=== PATIENT | female | born 1945 ===

== ENCOUNTER → 2016-12-26 | Outpatient (CLI) | payer BC ==
[~2016-12-26] MED LIST: ALPR1TAB6 PO; CALC300T5 PO; FURO-68 PO; GABA600T2 PO; IOHEXOL 180 MG/ML 10 ML VIAL. ONE; LOSA100T6 PO; LYSI600T PO; MAGN400C PO; MELO15TA23 PO; POTA10TA PO; methylPREDNISolone ACETATE 40 MG/ML VIAL. ONE; methylPREDNISolone ACETATE 80 MG/ML VIAL. ONE
--- NOTE | 2016-12-27 01:30 | PAIN ---
DATE OF SERVICE: 12/26/2016 INITIAL CONSULTATION FOR PAIN CLINIC CHIEF COMPLAINT: Low back and left lower extremity pain. HISTORY OF PRESENT ILLNESS: This is a 71-year-old female who presents with history of pain in low back and left lower extremity for about a year. The patient reports it has been on and off over the years, gradually increasing, not a result of any specific injury or action that she has aware of been. Significant pain noted in the low back, left lower extremity, getting worse over the past few months. The patient has had a right laminectomy in 2010 at the L3-L4 space, was having right-sided symptoms at that time, but this is similar to that, but only on the left side now. The patient reports again worse over the past 8 years, but much worse over the past 1 year. She has increasing pain with activity, standing, walking, changing positions. It is better with lying down, but still wakes once or twice at night from sleep when she lies on her left side. The patient reports it does not affect her bowel or bladder control or ability to walk by using any assistive device to ambulate. She has had epidural injections in the past, physical therapies, chiropractic treatment and doing exercises. She daily goes for a walk about 1-2 miles and is still doing that even though it is becoming more painful with some significant fatigability in the left leg compared to the right. The patient reports it as radiating pain, it is throbbing, shooting and constant aching. His leg feels cold in the left leg as well, mostly in the posterior gluteus, posterior thigh, lateral thigh, anterior thigh and into the medial knee on the left side. The patient rates her disability rating from 0 to 10, 10 being the worst, it is a 6 with family and home responsibilities, 7 with recreation and sexual behavior, 1 with social activity and life support activities, 5 with occupation, 0 with self-care activities. The patient did have an MRI scan of the lumbar spine dated 12/10/2016 showing postoperative findings in L3-L4 including right L3 laminectomy and partial right facetectomy, bilateral foraminal narrowing at L2-L3 and L3-L4 secondary to disk bulging and facet arthropathy, narrowing greater on the left with no definite disk herniations. PAST MEDICAL HISTORY: Significant for hypertension, dizziness, arthritis, anemia, enlarged left ventricle, congestive heart failure, arthritis. PREVIOUS SURGERIES: Include vaginal hysterectomy in 1979, bilateral cataract extraction in 2009, cervical disk fusion in 1994, spinal laminectomy in 2010, lumbar and ruptured ovarian cyst in the past. CURRENT MEDICATIONS: Include calcium carbonate, magnesium, lysine, Lasix, meloxicam, alprazolam, gabapentin, potassium, losartan and magnesium. ALLERGIES: THE PATIENT IS ALLERGIC TO PHILL INHIBITORS AND VOLTAREN. FAMILY HISTORY: Significant for diabetes and hypertension. SOCIAL HISTORY: The patient reports she is currently retired, has about 3 alcoholic drinks a week on average, does not smoke. She is , lives with her spouse. No children living at home. Lives locally in [place], [place]. REVIEW OF SYSTEMS: The patient's review of systems is positive for those items mentioned in history of present illness. All systems reviewed and otherwise negative. It is complete, full and well documented on the patient's chart. PHYSICAL EXAMINATION: VITAL SIGNS: The patient's blood pressure is 117/49, pulse 62, respirations 18, temperature 97.9 degrees Fahrenheit. Height is 5 feet 3 inches, weight is 200 pounds. GENERAL: The patient is awake, alert, oriented, appropriate, has a very pleasant demeanor. HEENT: Head shows normocephalic, atraumatic. Extraocular movements are intact, symmetrical. Oral cavity has mucous membranes moist and pink. Dentition is intact. NECK: Shows anterior throat supple without palpable lymphadenopathy noted. Swallow reflex is symmetrical. CHEST: Shows normal with inspection. Breath sounds are clear to auscultation bilaterally. HEART: Shows S1 and S2 clear. No murmurs auscultated. ABDOMEN: Soft, obese, nontender, nondistended. No palpable organomegaly. No rebound or guarding demonstrated. BACK: Shows spine grossly in the midline. Slight exaggeration of thoracic kyphosis, mild flattening of lumbar lordotic curvature, previously well-healed surgical scar in the lumbar distribution. Lumbar paraspinous musculature shows symmetrical on inspection. With palpation shows moderate tenderness to palpation bilaterally only in the low lumbar distribution and slightly more on the left side than the right. No tenderness over the spinous processes over the sacrum or the sacroiliac regions. The patient shows good rotational motion of lumbar spine, both laterally greater than 10 degrees right and left as well as extension greater than 10 degrees, forward flexion at 45 degrees without significant increase in pain. LOWER EXTREMITIES: Show deep tendon reflexes at 1+ in the patellar and tendo calcaneus tendons are equal. Motor exam is approximately 4 on a scale of 5 with left dorsiflexion, extension, and 5/5 with right dorsiflexion, extension, quadriceps and hamstring flexion is 5/5 and equal bilaterally. Peripheral pulses are 1+, posterior tibial and dorsalis pedis pulses. No peripheral edema is noted. No clubbing, no cyanosis. Lower extremities are warm and dry to touch, equal in color and appearance. Straight leg raise noted to be positive on the left at about 35 degrees, which is decreased with knee flexion, but not completely relieved. Right side is negative with straight leg raise. Gaenslen's and Edmund's maneuvers are negative for reproduction of pain as well bilaterally. The patient is able to stand, stand on her toes without significant difficulty, loses her balance fairly quickly when she is trying to heel toe walk, was able to do this for a few steps. She walks with a slight shuffling gait, appears to favor the left lower extremity only mildly, again not using any assistive devices to ambulate. IMPRESSION: 1. This is a 71-year-old female with approximate 8-year history of low back pain increased over the last year in the left lower extremity with radicular pain as noted. 2. MRI scan of the lumbar spine as noted. 3. Hypertension. 4. Arthritis. PLAN: Options were discussed with the patient including conservative medical management, physical therapy and interventional techniques. She would like to pursue interventional techniques. We discussed a lumbar epidural steroid injection using description as well as anatomical models to describe the procedure. Risks were then discussed including, but not limited to bleeding, infection, possibility of epidural hematoma and subsequent neurologic compromise, dural puncture, headaches, spinal cord and/or nerve damage, side effects of steroid medication and poor results regarding pain control. The patient understands and wishes to proceed. The patient will return to clinic in approximately 2 weeks for followup, was counseled on return appointment, activity level, and side effects to be aware of. DIAGNOSIS: Lumbar radiculopathy with lumbar degenerative disk disease and post-lumbar laminectomy syndrome. PROCEDURE: Lumbar epidural steroid injection in translaminar approach at the L4-L5 level using C-arm fluoroscopic guidance under sterile prep and drape using local anesthetic. Medication injected is 120 mg Depo-Medrol plus 10 mL of preservative-free normal saline and 2 mL of Isovue for contrast. CONDITION AT DISCHARGE: Stable. The patient tolerated the procedure well, had no complications. JUANA MENDEZ MD DR: [email or web address] JOB#: [id number] / [id number] NAYAN Cheung
== END | disposition home or self-care (01) ==
LOC: PNCL 08:23
PROVIDERS: ATTEND Anesthesiology
DX: M51.16 Intervertebral disc disorders with radiculopathy, lumbar region (principal); M96.1 Postlaminectomy syndrome, not elsewhere classified; I10 Essential (primary) hypertension; D64.9 Anemia, unspecified; I50.9 Heart failure, unspecified; Z90.710 Acquired absence of both cervix and uterus; Z98.41 Cataract extraction status, right eye; Z98.42 Cataract extraction status, left eye; Z88.8 Allergy status to other drugs, medicaments and biological substances; Z83.3 Family history of diabetes mellitus; Z82.49 Family history of ischemic heart disease and other diseases of the circulatory system; Z72.89 Other problems related to lifestyle; Z88.2 Allergy status to sulfonamides
CPT/HCPCS: 62323; J1030; J1040

== ENCOUNTER → 2017-01-06 | Outpatient (CLI) | payer BC ==
[~2017-01-06] MED LIST changes: +ASPI81TA50 PO
== END | disposition home or self-care (01) ==
LOC: PNCL 08:43
PROVIDERS: ATTEND Anesthesiology
DX: M51.36 Other intervertebral disc degeneration, lumbar region (principal); M96.1 Postlaminectomy syndrome, not elsewhere classified; K21.9 Gastro-esophageal reflux disease without esophagitis; Z88.6 Allergy status to analgesic agent; Z91.040 Latex allergy status; Z91.048 Other nonmedicinal substance allergy status; Z88.2 Allergy status to sulfonamides
CPT/HCPCS: 62323; J1030; J1040

== ENCOUNTER → 2017-01-27 | Outpatient (CLI) | payer BC ==
--- NOTE | 2017-01-27 23:18 | PAIN ---
DATE OF SERVICE: PROGRESS NOTE FOR PAIN CLINIC DIAGNOSES: Lumbar radiculopathy with lumbar degenerative disk disease and post-lumbar laminectomy syndrome. HISTORY OF PRESENT ILLNESS: The patient is a 71-year-old female, who returns for followup, status post lumbar epidural steroid injection x 2, last seen on 01/06/2017. The patient did very well with this last injection to about 50% improvement. She has been on a recent vacation and fell while she was gone, but before that, was doing very well. Pain is increased now in her low back and left lower extremity, mostly in the posterior gluteus and posterolateral thigh - radiating, aching, sharp, constant, and becoming more constant. The patient reports that it is a 7 at its worst. It is a 2 on a scale of 10 currently. The patient reports no new motor or sensory deficits, no new bowel or bladder incontinence, and was doing quite well prior to her fall, which was about a week ago. PHYSICAL EXAMINATION: VITAL SIGNS: Today, the patient's blood pressure is 139/106, pulse 62, respirations 20, temperature is 98.2 degrees Fahrenheit, and weight is 198 pounds. GENERAL: The patient is awake, alert, oriented, and appropriate, has very pleasant demeanor. HEENT: Head shows normocephalic, atraumatic. Extraocular movements are intact and symmetrical. Oral cavity: Mucous membranes are moist and pink. NECK: Shows anterior throat supple without palpable lymphadenopathy noted. Swallow reflex is symmetrical. CHEST: Shows normal on inspection. Breath sounds are clear to auscultation bilaterally. HEART: Shows S1 and S2 clear. No murmurs auscultated. ABDOMEN: Obese, soft, nontender, and nondistended. BACK: Shows spine grossly midline. Slight exaggeration of thoracic kyphosis and mild flattening of lumbar lordotic curvature. Lumbar paraspinous musculature shows symmetrical on inspection without atrophy or hypertrophy. With palpation, shows some moderate tenderness, but only diffusely in the mid and lower lumbar distributions bilaterally. The patient shows full rotational motion of the lumbar spine however, both laterally as well as in extension and flexion without difficulty. No tenderness over the sacrum or at the sacroiliac regions. EXTREMITIES: Lower extremities show deep tendon reflexes at 1+ in the patellar and tendocalcaneus tendons. Motor exam is approximately 4 on a scale of 5 on the left and 5/5 on the right. Peripheral pulses are 1+. No peripheral edema is noted bilaterally. Options were discussed with the patient. The patient's old chart was reviewed as well as her current medication regimen updated. Current review of systems updated today as well, and we will proceed with a third in the series of lumbar epidural steroid injection using fluoroscopic guidance. Risks were again discussed, including, but not limited to bleeding, infection, possibility of epidural hematoma, subsequent neurologic compromise, dural puncture, headaches, spinal cord and/or nerve damage, side effects of steroid medication, and poor results regarding pain control. The patient understands and wishes to proceed. The patient will return to clinic in approximately 2 weeks for followup. She was counseled on return appointment, activity level, and side effects to be aware of. DIAGNOSES: Lumbar radiculopathy with lumbar degenerative disk disease and post-lumbar laminectomy syndrome. PROCEDURES: Lumbar epidural steroid injection in translaminar approach at the L4-5 level using C-arm fluoroscopic guidance under sterile prep and drape using local anesthetic. MEDICATIONS INJECTED: Depo-Medrol 120 mg plus 10 mL of preservative-free normal saline and 2 mL of Isovue for contrast. CONDITION AT DISCHARGE: Stable. The patient tolerated the procedure well, had no complications. JUANA MENDEZ MD DR: JEREMY/[email or web address] JOB#: [id number] / [id number]
== END | disposition home or self-care (01) ==
LOC: PNCL 09:36
PROVIDERS: ATTEND Anesthesiology
DX: M51.16 Intervertebral disc disorders with radiculopathy, lumbar region (principal); M96.1 Postlaminectomy syndrome, not elsewhere classified; Z88.6 Allergy status to analgesic agent; Z88.2 Allergy status to sulfonamides
CPT/HCPCS: 62323; J1030; J1040